=== PATIENT | female | born 1945 | race Caucasian/White ===

== ENCOUNTER → 2016-10-24 | Outpatient (CLI) | payer MEDICARE, OTHER ==
[~2016-10-24] MED LIST: ASPIRIN 81M81 MG/TA2 PO; BENADRYL25 M2 PO; CALTRATE-600 W600 MG PO; COUMADIN 22.5 MG/TAB PO; FERROUS SU325 MG/TAB PO; FOLIC ACID PO; FORTEO SC; FORTEO250 MCG/ML SC; LODINE400 MG PO; LORATADINE10 MG PO; LORTAB 5/500 501 TAB PO; LOVAZA1 GM PO; LOVENOX 8080 MG/0.8 SQ; LUTEIN20 MG PO; METANX 2.8 MG-21 TAB PO; METANX PO; METHOTREXA2.5 MG/TAB PO; METHYLPRED DP4 MG PO; MULTAQ400 MG PO; NORCO 325 MG-51 TAB PO; RITUXAN 50500 MG/50 IV; SOLU-MEDRO125 MG/21 IV; ZOFRAN 4MG T4 MG/TAB PO; ZOMIG 2.5MG2.5 MG PO
== END ==
LOC: MC.RAD 15:06
DX: Z12.31 Encounter for screening mammogram for malignant neoplasm of breast (principal)

== ENCOUNTER 2016-12-17 08:16 | Outpatient (CLI) | payer MEDICARE, OTHER ==
[~2016-12-17] VITALS: Ht 160.1 cm; Wt 53.6 kg
[2016-12-17 08:56] VITALS: BP 161/79; PULSE 51
[2016-12-17 09:01] VITALS: BP 161/79; PULSE 51; TEMP 98.7
[2016-12-17 09:39] LABS: HEMATOCRIT 38.1 % (37.0-47.0); MEAN CELL VOLUME 96 fl (80.0-100.0); MEAN CORPUSCULAR HEMOGLOBIN 33 pg (27.0-31.0); MEAN CORPUSCULAR HGB CONC 34 g/dl (33.0-37.0); MEAN PLATELET VOLUME 10.4 fl (7.4-10.4); PLATELET COUNT 211 K/mm3 (130-400); RED BLOOD COUNT 3.96 M/mm3 (4.10-5.30); REDCELL DISTRIBUTION WIDTH-CV 14.2 % (11.5-14.5); WHITE BLOOD COUNT 7.1 K/mm3 (4.8-10.8)
[2016-12-17 09:43] LABS: INR 3.2 (0.8-3.0); PROTHROMBIN TIME 37.1 SECONDS (9.7-12.8)
[2016-12-17 09:50] LABS: CREATININE, serum 0.56 mg/dL (0.52-1.25); POTASSIUM 3.8 mmol/L (3.4-5.0)
[2016-12-17] MEDS ORDERED: METHOTREXA2.5 MG/TAB PO (09:59)
[2016-12-17 10:25] VITALS: BP 146/70; PULSE 55
[2016-12-17 10:30] VITALS: BP 165/85; PULSE 59
[2016-12-17 10:35] VITALS: BP 159/85; PULSE 64
== END 2016-12-17 13:00 | disposition home or self-care (01) ==
LOC: COL.RAD 08:16
PROVIDERS: Internal Medicine Cardiovascular Disease
DX: I48.91 Unspecified atrial fibrillation (principal); I08.8 Other rheumatic multiple valve diseases
CPT/HCPCS: J2704

== ENCOUNTER 2016-12-31 07:52 | Day surgery (SDC) | payer MEDICARE, OTHER ==
[2016-12-31] VITALS (10 sets, daily range): BP systolic 120–154; BP diastolic 66–82; PULSE 55–61; TEMP 97.7
[~2016-12-31] VITALS: Ht 160.2 cm; Wt 53.6 kg
[2016-12-31 08:31] LABS: HEMATOCRIT 40.4 % (37.0-47.0); HEMOGLOBIN 13.5 g/dl (12.5-16.0); MEAN CELL VOLUME 98 fl (80.0-100.0); MEAN CORPUSCULAR HEMOGLOBIN 33 pg (27.0-31.0); MEAN CORPUSCULAR HGB CONC 33 g/dl (33.0-37.0); MEAN PLATELET VOLUME 9.9 fl (7.4-10.4); PLATELET COUNT 271 K/mm3 (130-400); RED BLOOD COUNT 4.12 M/mm3 (4.10-5.30); REDCELL DISTRIBUTION WIDTH-CV 14.2 % (11.5-14.5)
[2016-12-31 08:34] LABS: INR 1.2 (0.8-3.0); PROTHROMBIN TIME 13.9 SECONDS (9.7-12.8)
[2016-12-31 08:39] LABS: CALCIUM 9.3 mg/dL (8.4-10.2); CREATININE, serum 0.59 mg/dL (0.52-1.25); POTASSIUM 4.4 mmol/L (3.4-5.0)
[2016-12-31] MEDS ORDERED: COUMADIN 22.5 MG/TAB PO (08:51)
== END 2016-12-31 15:00 | disposition home or self-care (01) ==
LOC: COL.CAR 07:52
PROVIDERS: Internal Medicine Cardiovascular Disease
DX: I34.0 Nonrheumatic mitral (valve) insufficiency (principal); Z79.01 Long term (current) use of anticoagulants
CPT/HCPCS: C1769; J1644; J2250; J3010; Q9967

== ENCOUNTER 2017-03-31 08:22 | Inpatient (IN) | payer MEDICARE, OTHER ==
[~2017-03-31] VITALS: Ht 160 cm; Wt 61.1 kg
[2017-03-31 08:54] LABS: MEAN CELL VOLUME 99 fl (80.0-100.0); MEAN CORPUSCULAR HGB CONC 32 g/dl (33.0-37.0); MEAN PLATELET VOLUME 9.4 fl (7.4-10.4); PLATELET COUNT 385 K/mm3 (130-400); RED BLOOD COUNT 2.79 M/mm3 (4.10-5.30); REDCELL DISTRIBUTION WIDTH-CV 14.9 % (11.5-14.5); WHITE BLOOD COUNT 7.5 K/mm3 (4.8-10.8)
[2017-03-31 08:58] LABS: ADD PATHOLOGY DIFF REVIEW NO; HEMATOCRIT 27.6 % (37.0-47.0); HEMOGLOBIN 8.9 g/dl (12.5-16.0); MEAN CORPUSCULAR HEMOGLOBIN 32 pg (27.0-31.0)
[2017-03-31 09:06] LABS: INR 3.7 (0.8-3.0); PROTHROMBIN TIME 43.4 SECONDS (9.7-12.8)
[2017-03-31 09:08] LABS: PARTIAL THROMBOPLASTIN TIME 45.9 SECONDS (26.0-37.0)
[2017-03-31 10:06] LABS: TROPONIN-I 0.51 ng/mL (0.000-0.034)
[2017-03-31 10:16] LABS: BAND 16 % (0-10); EOSINOPHIL 2 % (0-4); NEUTROPHILS 66 % (42.0-75.2); TOTAL CELLS COUNTED 100
[2017-03-31 10:17] LABS: OVALOCYTES 1+; PLATELET ESTIMATE INCREASED (NORMAL)
[2017-03-31 11:15] LABS: ADJUSTED CALCIUM 9.4 mg/dL (8.4-10.2); ALBUMIN 3.3 gm/dL (3.5-5.0); BILIRUBIN,TOTAL 0.4 mg/dL (0.0-1.0); CALCIUM 8.8 mg/dL (8.4-10.2); CREATININE, serum 0.44 mg/dL (0.52-1.25); POTASSIUM 3.5 mmol/L (3.4-5.0); TOTAL PROTEIN 5.7 gm/dL (6.4-8.2)
[2017-03-31 13:18] VITALS: BP 108/44; PULSE 57; TEMP 97.5
[2017-03-31] MEDS ORDERED: ASPIRIN 81M81 MG/TA2 PO (14:30)
[2017-03-31] MEDS ORDERED: EPA FISH OIL1 SGL PO (14:31)
[2017-03-31] MEDS ORDERED: TYLENOL 500MG500 MG PO (14:41)
[2017-03-31 16:21] VITALS: BP 105/45; PULSE 70; TEMP 98.4
[2017-03-31 20:53] VITALS: BP 121/45; PULSE 57; TEMP 98.1
[2017-04-01 00:45] VITALS: BP 113/48; PULSE 57; TEMP 98.5
[2017-04-01 04:30] VITALS: BP 110/56; PULSE 58; TEMP 97.8
[2017-04-01 07:38] VITALS: BP 116/54; PULSE 60; TEMP 98.9
[2017-04-01 09:10] LABS: MEAN CELL VOLUME 100 fl (80.0-100.0); MEAN CORPUSCULAR HGB CONC 33 g/dl (33.0-37.0); MEAN PLATELET VOLUME 9.2 fl (7.4-10.4); PLATELET COUNT 392 K/mm3 (130-400); RED BLOOD COUNT 2.73 M/mm3 (4.10-5.30); WHITE BLOOD COUNT 8.4 K/mm3 (4.8-10.8)
[2017-04-01 09:11] LABS: HEMATOCRIT 27.2 % (37.0-47.0); HEMOGLOBIN 8.9 g/dl (12.5-16.0); MEAN CORPUSCULAR HEMOGLOBIN 33 pg (27.0-31.0)
[2017-04-01 09:12] LABS: ADD PATHOLOGY DIFF REVIEW NO
[2017-04-01 09:18] LABS: PROTHROMBIN TIME 35.2 SECONDS (9.7-12.8)
[2017-04-01 09:20] LABS: CALCIUM 8.8 mg/dL (8.4-10.2); CREATININE, serum 0.48 mg/dL (0.52-1.25)
[2017-04-01 10:21] LABS: BAND 6 % (0-10); METAMYELOCYTE 1 % (0-0); NEUTROPHILS 75 % (42.0-75.2); PLATELET ESTIMATE NORMAL (NORMAL); TOTAL CELLS COUNTED 100
[2017-04-01 10:29] LABS: MAGNESIUM 1.9 mg/dL (1.6-2.3)
[2017-04-01 12:10] VITALS: BP 101/39; PULSE 58; TEMP 98.1
[2017-04-01 16:06] LABS: CALCIUM 9.1 mg/dL (8.4-10.2); CREATININE, serum 0.57 mg/dL (0.52-1.25); MAGNESIUM 1.8 mg/dL (1.6-2.3); POTASSIUM 4.4 mmol/L (3.4-5.0)
[2017-04-01] MEDS ORDERED: LASIX 20MG TABL20 MG PO (16:24)
[2017-04-01] MEDS ORDERED: K-TAB10 PO (16:25)
[2017-04-01] MEDS ORDERED: K-TAB20 PO (16:37)
[2017-04-01] MEDS ORDERED: LASIX 40MG TABL40 MG PO (16:37)
== END 2017-04-01 18:10 | disposition home or self-care (01) | DRG 188 ==
LOC: COL.ER 08:22 → MEDICAL 12:07
PROVIDERS: Emergency Medicine; Internal Medicine Cardiovascular Disease; Nurse Practitioner Family
DX: J90 Pleural effusion, not elsewhere classified (principal); Z95.2 Presence of prosthetic heart valve; M06.9 Rheumatoid arthritis, unspecified; I48.0 Paroxysmal atrial fibrillation; D64.9 Anemia, unspecified; Z79.01 Long term (current) use of anticoagulants; E87.6 Hypokalemia
CPT/HCPCS: 99223-AI; 99239; J1940; J2270

== ENCOUNTER 2017-06-20 14:39 | Outpatient (RCR) | payer MEDICARE, OTHER ==
[~2017-06-20 14:39] MED LIST changes: +CLARITIN 1010 MG/TAB PO; +EPA FISH OIL1 SGL PO; +FOLIC ACID 11 MG/TA1 PO; -FOLIC ACID PO; +K-TAB10 PO; +K-TAB20 PO; +LASIX 20MG TABL20 MG PO; +LASIX 40MG TABL40 MG PO; -LORATADINE10 MG PO; +LUTEIN20 M1 PO; -LUTEIN20 MG PO; +TYLENOL 500MG500 MG PO
[2017-07-23] MEDS ORDERED: TIAZAC120 MG PO (06:53)
[2017-07-23] MEDS ORDERED: MULTAQ400 MG PO (06:54)
[2017-07-23] MEDS ORDERED: LASIX 20MG TABL20 MG PO (06:56)
[2017-07-23] MEDS ORDERED: K-DUR20 MEQ PO (07:01)
== END 2017-08-08 14:51 ==
LOC: COL.CR
DX: Z48.812 Encounter for surgical aftercare following surgery on the circulatory system (principal); I08.1 Rheumatic disorders of both mitral and tricuspid valves; I48.0 Paroxysmal atrial fibrillation

== ENCOUNTER 2017-07-23 05:59 | Day surgery (SDC) | payer MEDICARE, OTHER ==
[~2017-07-23] VITALS: Ht 160 cm; Wt 55.9 kg
[2017-07-23] VITALS (7 sets, daily range): BP systolic 88–109; BP diastolic 44–82; PULSE 52–107; TEMP 97.5–97.6
[2017-07-23 06:32] LABS: MEAN CELL VOLUME 89 fl (80.0-100.0); MEAN CORPUSCULAR HGB CONC 33 g/dl (33.0-37.0); MEAN PLATELET VOLUME 9.2 fl (7.4-10.4); PLATELET COUNT 299 K/mm3 (130-400); RED BLOOD COUNT 4.06 M/mm3 (4.10-5.30); REDCELL DISTRIBUTION WIDTH-CV 17.4 % (11.5-14.5)
[2017-07-23 06:36] LABS: HEMATOCRIT 36.2 % (37.0-47.0); HEMOGLOBIN 11.8 g/dl (12.5-16.0); MEAN CORPUSCULAR HEMOGLOBIN 29 pg (27.0-31.0)
[2017-07-23 06:40] LABS: PROTHROMBIN TIME 23.2 SECONDS (9.7-12.8)
[2017-07-23 06:42] LABS: PARTIAL THROMBOPLASTIN TIME 40.6 SECONDS (26.0-37.0)
[2017-07-23] MEDS ORDERED: TIAZAC120 MG PO (06:53)
[2017-07-23] MEDS ORDERED: MULTAQ400 MG PO (06:54)
[2017-07-23] MEDS ORDERED: LASIX 20MG TABL20 MG PO (06:56)
[2017-07-23] MEDS ORDERED: K-DUR20 MEQ PO (07:01)
[2017-07-23 07:05] LABS: CALCIUM 9.4 mg/dL (8.4-10.2); CREATININE, serum 0.68 mg/dL (0.52-1.25); POTASSIUM 4.2 mmol/L (3.4-5.0)
== END 2017-07-23 11:34 | disposition home or self-care (01) ==
LOC: COL.CAR 05:59
PROVIDERS: Internal Medicine Cardiovascular Disease
DX: I48.0 Paroxysmal atrial fibrillation (principal); E78.5 Hyperlipidemia, unspecified; M06.9 Rheumatoid arthritis, unspecified; Z96.651 Presence of right artificial knee joint; Z79.01 Long term (current) use of anticoagulants; Z85.828 Personal history of other malignant neoplasm of skin; Z82.49 Family history of ischemic heart disease and other diseases of the circulatory system; Z82.3 Family history of stroke
CPT/HCPCS: G9654; J2704

== ENCOUNTER 2017-08-06 15:01 | Outpatient (RCR) | payer MEDICARE, OTHER ==
[~2017-08-06 15:01] MED LIST changes: +K-DUR20 MEQ PO; +TIAZAC120 MG PO
== END 2017-10-12 | disposition still patient (30) ==
LOC: COL.CR
DX: Z48.812 Encounter for surgical aftercare following surgery on the circulatory system (principal); I34.0 Nonrheumatic mitral (valve) insufficiency; I07.1 Rheumatic tricuspid insufficiency; I48.0 Paroxysmal atrial fibrillation; Z79.01 Long term (current) use of anticoagulants

== ENCOUNTER → 2018-02-06 | Outpatient (CLI) | payer MEDICARE, OTHER | LOC: COL.RAD 13:24 | DX: M54.6 Pain in thoracic spine (principal); R20.0 Anesthesia of skin ==

== ENCOUNTER → 2018-02-13 | Outpatient (CLI) | payer MEDICARE, OTHER | LOC: MC.RAD 10:53 | DX: Z12.31 Encounter for screening mammogram for malignant neoplasm of breast (principal) ==

== ENCOUNTER 2018-12-04 16:07 | Emergency (ER) | payer MEDICARE, OTHER ==
[~2018-12-04] VITALS: Ht 160 cm; Wt 56.8 kg
[2018-12-04 16:09] VITALS: TEMP 97.6
[2018-12-04 17:06] VITALS: BP 126/55; PULSE 64
== END 2018-12-04 17:10 | disposition home or self-care (01) ==
LOC: COL.ER 16:07
DX: S91.311A Laceration without foreign body, right foot, initial encounter (principal); I48.91 Unspecified atrial fibrillation; Z23 Encounter for immunization; Z79.01 Long term (current) use of anticoagulants; W26.0XXA Contact with knife, initial encounter; Y92.009 Unspecified place in unspecified non-institutional (private) residence as the place of occurrence of the external cause

== ENCOUNTER 2018-12-11 08:50 | Emergency (ER) | payer MEDICARE, OTHER ==
[2018-12-11 08:54] VITALS: BP 137/65; PULSE 59; TEMP 97.9
== END 2018-12-11 09:00 | disposition home or self-care (01) ==
LOC: COL.ER 08:50
DX: S91.311D Laceration without foreign body, right foot, subsequent encounter (principal); X58.XXXD Exposure to other specified factors, subsequent encounter; Z79.01 Long term (current) use of anticoagulants

== ENCOUNTER → 2019-04-09 | Outpatient (CLI) | payer MEDICARE, OTHER | LOC: MC.RAD 03-23 09:30 | DX: Z12.31 Encounter for screening mammogram for malignant neoplasm of breast (principal) ==

== ENCOUNTER 2019-09-01 11:19 | Day surgery (SDC) | payer MEDICARE, OTHER ==
[~2019-09-01] VITALS: Ht 160 cm; Wt 57.4 kg
[2019-09-01 12:07] VITALS: BP 135/90; PULSE 128; TEMP 98
[2019-09-01 12:18] LABS: CALCIUM 9.6 mg/dL (8.4-10.2); CREATININE, serum 0.44 (0.52-1.25); MAGNESIUM 2.2 mg/dL (1.6-2.3); POTASSIUM 4.5 mmol/L (3.4-5.0)
[2019-09-01 12:19] LABS: HEMATOCRIT 38.2 % (37.0-47.0); HEMOGLOBIN 12.4 g/dl (12.5-16.0); MEAN CELL VOLUME 96 fl (80.0-100.0); MEAN CORPUSCULAR HEMOGLOBIN 31 pg (27.0-31.0); MEAN CORPUSCULAR HGB CONC 33 g/dl (33.0-37.0); MEAN PLATELET VOLUME 9.9 fl (7.4-10.4); PLATELET COUNT 266 K/mm3 (130-400); RED BLOOD COUNT 3.97 M/mm3 (4.10-5.30); REDCELL DISTRIBUTION WIDTH-CV 15.9 % (11.5-14.5)
[2019-09-01 12:21] LABS: INR 1.3 (0.8-3.0); PROTHROMBIN TIME 15.8 SECONDS (9.7-12.8)
[2019-09-01 12:24] LABS: PARTIAL THROMBOPLASTIN TIME 42.9 SECONDS (26.0-37.0)
[2019-09-01] MEDS ORDERED: ELIQUIS 5MG PO (12:47)
[2019-09-01] MEDS ORDERED: FLONASEALLERGY NS (12:47)
[2019-09-01 12:48] LABS: THYROID STIMULATING HORMONE 1.93 uIU/mL (0.465-4.680)
[2019-09-01] MEDS ORDERED: FOLIC ACID 11 MG/TA1 PO (12:48)
[2019-09-01] MEDS ORDERED: XALATAN EYE DROPS OU (12:49)
[2019-09-01 13:30] VITALS: BP 113/63; PULSE 53; TEMP 98
[2019-09-01 13:45] VITALS: BP 107/64; PULSE 22; TEMP 98
[2019-09-01 14:00] VITALS: BP 106/65; PULSE 51; TEMP 98
[2019-09-01 14:15] VITALS: BP 106/59; PULSE 53; TEMP 98
[2019-09-01 14:44] VITALS: BP 107/58; PULSE 52; TEMP 98
--- NOTE | 2019-09-01 14:45 | NUR ---
INT discontinued intact. Discharge instructions given. Transferred to private car by eleno
== END 2019-09-01 14:55 | disposition home or self-care (01) ==
LOC: COL.CAR 11:19
PROVIDERS: Internal Medicine Cardiovascular Disease
DX: I48.0 Paroxysmal atrial fibrillation (principal); E78.5 Hyperlipidemia, unspecified; I34.0 Nonrheumatic mitral (valve) insufficiency; M81.0 Age-related osteoporosis without current pathological fracture; M06.9 Rheumatoid arthritis, unspecified; I11.0 Hypertensive heart disease with heart failure; I50.9 Heart failure, unspecified; G89.29 Other chronic pain; G43.909 Migraine, unspecified, not intractable, without status migrainosus; Z96.651 Presence of right artificial knee joint; Z79.01 Long term (current) use of anticoagulants; Z79.51 Long term (current) use of inhaled steroids; Z79.899 Other long term (current) drug therapy; Z82.3 Family history of stroke; Z85.828 Personal history of other malignant neoplasm of skin
CPT/HCPCS: J2704; J3010